=== PATIENT | male | born 1950 | race Caucasian/White ===

== ENCOUNTER 2020-09-03 09:17 | Emergency (ER) | payer MEDICARE, SELFPAY ==
--- NOTE | 2020-09-03 09:29 | ECG_ITS ---
[facility] Test Date: 2020-09-03 Pat Name: Mallorie Guo Department: Room: Gender: Male Pilot Instructor: : 1950 Requested By: Lorri Junior Order Number: [id number] Belinda MD: Beena Wagoner M.D. Measurements Intervals [place] Rate: 74 P: 62 WV: 141 QRS: 103 QRSD: 142 T: 5 QT: 432 QTc: 481 Interpretive Statements SINUS RHYTHM RIGHT AXIS DEVIATION [QRS AXIS > 100] INTRAVENTRICULAR CONDUCTION DELAY [130+ ms QRS DURATION] No previous ECG available for comparison Electronically Signed On 09-03-2020 21:31:10 TOWER SWITCH OPERATOR by Beena Wagoner M.D. [id number]
--- NOTE | 2020-09-03 09:29 | XR_ITS ---
WS: [id number] PORTABLE CHEST HISTORY: fatigue, not feeling well COMPARISON: None available. Mild pulmonary hyperinflation from emphysema. Slight elevation RIGHT hemidiaphragm. Subsegmental area of atelectasis at the LEFT lung base. No pleural effusion or pneumothorax. Cardiac size: Normal. Mediastinum/Aorta: Mild atherosclerosis aorta. No osseous abnormality seen. XR/XR chest 1V portable [id number] IMPRESSION: 1. Chronic emphysema with no pneumonia. 2. Subsegmental atelectasis LEFT lung base.
[2020-09-03 09:41] VITALS: BP 152/95; PULSE 80; RESP 18; TEMP 36.9; O2SAT 95; BMI 23.7
--- NOTE | 2020-09-03 10:25 | ED_ITS ---
HPI - General Adult General: Chief complaint: General Medical Stated complaint: FEELING BAD FOR 6 DAYS, UNSURE WHATS WRONG Time Seen by Provider: 09/03/20 09:53 Source: patient and family (spouse) Mode of arrival: ambulatory Limitations: no limitations History of Present Illness: HPI narrative: 70-year-old male patient presents to the emergency department with 6-day history of not feeling well. Symptoms started 08/29/2020. He reports he developed 100.0 temperature on Monday, 4-5 days ago, reports decreased appetite, taking Tylenol several times daily, taking baby aspirin daily as well as naproxen. He denies fever chills or night sweats. Denies nausea vomiting diarrhea. He does state left-sided chest pain that started last night, reports shortness of breath with exertion which is new. States has not seen a doctor in several years, denies medical problems, denies weight loss, he does not smoke nor drink alcohol. His spouse is present. Onset (ago): day(s) (7) Location: chest (left lower chest - with cough - none today) Severity: mild Severity scale (1-10): 4 Quality: sharp Pain Consistency: intermittent Associated symptoms: Reports chest pain, cough, decreased appetite, malaise, short of breath and weakness; Deny dyspnea, headache(s), nausea, rash, palpitations, syncope or vomiting Treatments prior to arrival: NSAID, aspirin and other (Tylenol) Review of Systems General: Reports: 10 or more systems reviewed and unremarkable except in HPI and below Const: Reports: malaise Eyes: Denies: blurry vision or eye redness ENMT: Reports: nasal congestion and post nasal drip; Denies: throat pain, hoarseness, dental pain, disequilibrium, nasal discharge or nasal obstruction Card: Reports: chest pain and dyspnea on exertion; Denies: palpitations, edema, lightheadedness, syncope or orthopnea Resp: Reports: productive cough (clear sputum) and chest congestion; Denies: dyspnea, non-productive cough, wheezing or hemoptysis GI: Denies: abdominal pain, nausea, vomiting, dysphagia, heartburn, diarrhea, constipation, GI cramping or pain on defecation : Denies: difficulty urinating, dysuria or difficulty starting urination Musc: Reports: muscle weakness; Denies: neck pain, back pain, joint pain, joint swelling, limited range of motion or muscle cramps Skin/Breast: Denies: rash or pruritus Neuro: Denies: headache(s), weakness in extremities or behavioral changes Psych: Denies: anxiety or depression Aime/Lymph: Denies: easy bruising PFSH ED PFSH: Social History (Updated 09/03/20 @ 10:29 by LACY Morse) Alcohol intake: never Caregiver/support person: Yes Lives independently: Yes Household members: spouse Physical Exam Const: COMMON NORMALS: no acute distress, average body habitus, patient oriented x3, healthy appearing and alert EXAM LIMITATIONS: altered mental status GENERAL APPEARANCE: cooperative, comfortable and well hydrated NUTRITIONAL APPEARANCE: thin ORIENTATION/CONSCIOUSNESS: Yes awake, Yes oriented to person, Yes oriented to place and Yes oriented to time HENMT: COMMON NORMALS: normocephalic, atraumatic, EAC's normal, Normal external nose present and moist oral mucous membranes HEAD & SCALP: normocephalic and atraumatic FACE & SINUS: normal facial exam, sinuses nontender and face symmetric NOSE: Normal external nose present EXTERNAL AUDITORY CANAL: EAC's normal THROAT: posterior oropharynx normal Eye: COMMON NORMALS: Equal, round and reactive pupils present, EOMs intact bilaterally and conjunctivae normal GENERAL EYE: appearance normal, both eyes and all related structures EYELID: eyelids normal CONJUNCTIVA: Yes conjunctivae normal SCLERA: sclerae normal PUPIL: Yes Equal, round and reactive pupils present Neck/C-Spine: COMMON NORMALS: full ROM, no lymphadenopathy and supple GENERAL: Yes normal visual inspection and Yes trachea midline CERVICAL SPINE: Yes cervical ROM normal, No pain with cervical ROM, No Cervical spine tenderness and No Paracervical muscle tenderness Lymph: LYMPHATIC: no lymphadenopathy noted Chest: COMMONS NORMALS: normal inspection of the chest and normal palpation of entire chest wall Resp: COMMON NORMALS: normal respiratory effort, No retractions, No use of accessory muscles and clear to auscultation bilaterally EFFORT & INSPECTION: Yes able to speak in complete sentences, Yes symmetric chest movement, No pursed lip breathing and No retractions AUSCULTATION: clear to auscultation bilaterally, crackles Laterality: left and anterior and wheezes left lower Cardio: COMMON NORMALS: regular rhythm, S1 normal heart sound present and S2 normal heart sound present RHYTHM: regular rhythm HEART SOUNDS: S1 normal heart sound present and S2 normal heart sound present GI: COMMON NORMALS: Soft to palpation and non-tender INSPECTION: Yes normal to inspection PALPATION: Yes Soft to palpation : COMMON NORMALS: Yes no CVA tenderness BLADDER/KIDNEY EXAM: Yes no CVA tenderness Back/Pelvis: COMMON NORMALS: no CVA tenderness, thoracic and lumbar spine normal to inspection and no thoracic nor lumbar tenderness Extremity: COMMON NORMALS: normal to inspection and capillary refill normal Neuro: COMMON NORMALS: patient oriented x3 and no focal motor deficits SENSORIUM/ORIENTATION: Yes alert, Yes oriented to person, Yes oriented to place and Yes oriented to time GAIT: Yes Normal gait present Psych: COMMON NORMALS: mental status grossly normal, Normal thought process present and cooperative APPEARANCE: Yes grossly normal ACTIVITY/MOTOR BEHAVIOR: Yes appropriate eye contact THOUGHT PROCESS: Normal thought process present INSIGHT: Good insight present (Psych) JUDGEMENT: Good judgement present (Psych) Skin: COMMON NORMALS: no rashes or lesions noted, no wounds, turgor normal, no jaundice and no petechiae GENERAL SKIN EXAM: no rashes or lesions noted, elasticity normal and turgor normal Course Vital Signs: Vital signs: Vital Signs Temperature 98.5 F 09/03/20 09:41 Pulse Rate 87 09/03/20 13:50 Respiratory Rate 20 H 09/03/20 13:50 Blood Pressure 150/81 09/03/20 13:50 Pulse Oximetry 96 09/03/20 13:50 MDM - General Adult MDM Narrative: Medical decision making narrative: 70-year-old male patient presents to the emergency department with 6-day history of not feeling well. Chest x-ray revealed chronic emphysema with subsegmental atelectasis left lung base; tested positive for COVID-19 here in the ED; he was not in distress, appears healthy, oxygen saturation maintained between 96 to 100% on room air. Able to tolerate p.o. fluids without nausea; decreased appetite reported which is expected. Lactate normal, lipase normal, troponin 15, EKG sinus rhythm with right axis deviation; he reports has home oxygen monitoring device; Covid results discussed with the patient, I spent lengthy conversation discussing Covid and symptoms that can occur. I also discussed at length monoclonal antibody infusion; I discussed infusion side effects, risks and studies that have concluded patients who receive antibody infusion are less likely to experience severe Covid side effects. Also discussed results with his via phone and monoclonal antibody infusion candidacy. He agrees to proceed; social welfare clerk will assist with appointment needed for infusion. Patient advised to return to the emergency department if he developed pain with inspiration, difficulty breathing, inability to catch his breath or worsening chest pain. Lab Data: Labs: Lab Results 09/03/20 09/03/20 09/03/20 Range/Units 10:15 10:15 10:15 WBC 9.5 (4.0-10.0) 10^3/ uL RBC 4.91 (4.1-5.3) 10^6/u L Hgb 15.3 (11.7-16.6) g/dL Hct 45.3 (42.0-52.0) % MCV 92.3 (80-94) fL MCH 31.2 (28.0-34.0) pg MCHC 33.8 (30.0-36.0) g/dL RDW 12.1 (12.1-15.1) % Plt Count 191 (130-400) 10^3/c mm MPV 9.9 (7.4-10.4) fL Neut % (Auto) 80.7 % Lymph % (Auto) 10.7 % Wright % (Auto) 8.2 % Eos % (Auto) 0.0 % Baso % (Auto) 0.1 % Neut # (Auto) 7.68 (1.8-7.7) 10^3/u L Lymph # (Auto) 1.0 (0.8-4.8) 10^3/u L Wright # (Auto) 0.8 (0.2-0.9) 10^3/u L Eos # (Auto) 0.0 (0.0-0.8) 10^3/u L Baso # (Auto) 0.0 (0.0-0.1) 10^3/u L Nucleated RBC % (a uto) 0 % Nucleated RBCs # 0.0 /100WBC Sodium 136 (136-145) mmol/L Potassium 3.9 (3.5-5.1) mmol/L Chloride 100 (98-107) mmol/L Carbon Dioxide 23 (22-29) mmol/L Anion Gap 16.9 (5-19) BUN 21 (8-23) mg/dL Creatinine 0.9 (0.7-1.2) mg/dL GFR Calculation 83.4 L (90-130) mL/min Glucose 112 (65-115) mg/dL Calculated Osmolal ity 286 (285-295) mOsm/k g Lactate 1.1 (0.5-2.2) mmol/L Calcium 8.4 L (8.5-10.5) mg/dL Total Bilirubin 0.6 (0.15-1.2) mg/dL AST 39 (0-40) U/L ALT 36 (0-41) U/L Alkaline Phosphata se 148 H (40-130) IU/L Troponin T Baselin e (0-15) ng/L Total Protein 7.1 (6.6-8.7) g/dL Albumin 4.1 (3.5-5.2) g/dL Globulin 3.0 (1.3-4.6) g/dL Lipase 24 (13-60) U/L Influenza Type A A g (Negative) Influenza Type B A g (Negative) SARS-CoV-2 Ag (Rap id) (Negative) 09/03/20 09/03/20 09/03/20 Range/Units 10:15 10:30 10:30 WBC (4.0-10.0) 10^3/ uL RBC (4.1-5.3) 10^6/u L Hgb (11.7-16.6) g/dL Hct (42.0-52.0) % MCV (80-94) fL MCH (28.0-34.0) pg MCHC (30.0-36.0) g/dL RDW (12.1-15.1) % Plt Count (130-400) 10^3/c mm MPV (7.4-10.4) fL Neut % (Auto) % Lymph % (Auto) % Wright % (Auto) % Eos % (Auto) % Baso % (Auto) % Neut # (Auto) (1.8-7.7) 10^3/u L Lymph # (Auto) (0.8-4.8) 10^3/u L Wright # (Auto) (0.2-0.9) 10^3/u L Eos # (Auto) (0.0-0.8) 10^3/u L Baso # (Auto) (0.0-0.1) 10^3/u L Nucleated RBC % (a uto) % Nucleated RBCs # /100WBC Sodium (136-145) mmol/L Potassium (3.5-5.1) mmol/L Chloride (98-107) mmol/L Carbon Dioxide (22-29) mmol/L Anion Gap (5-19) BUN (8-23) mg/dL Creatinine (0.7-1.2) mg/dL GFR Calculation (90-130) mL/min Glucose (65-115) mg/dL Calculated Osmolal ity (285-295) mOsm/k g Lactate (0.5-2.2) mmol/L Calcium (8.5-10.5) mg/dL Total Bilirubin (0.15-1.2) mg/dL AST (0-40) U/L ALT (0-41) U/L Alkaline Phosphata se (40-130) IU/L Troponin T Baselin e 15 (0-15) ng/L Total Protein (6.6-8.7) g/dL Albumin (3.5-5.2) g/dL Globulin (1.3-4.6) g/dL Lipase (13-60) U/L Influenza Type A A g Negative (Negative) Influenza Type B A g Negative (Negative) SARS-CoV-2 Ag (Rap id) Positive H (Negative) Imaging Data^: CXR: Radiologist's impression: [address] [address] XRay Report Signed Patient: Record,CoceanUnit #: [id number] : 1950Acct#:[id number] Age/Sex: 70 / MADM Date: 09/03/20 Loc: [facility]/Bed: Attending Dr: Ordering Provider/Ordering MD: Lorri Matos Date of Service: 09/03/20 Procedure(s): XR chest 1V portable [id number] Accession Number(s): [id number] Report Number: [id number] WS: [id number] PORTABLE CHEST HISTORY: fatigue, not feeling well COMPARISON: None available. Mild pulmonary hyperinflation from emphysema. Slight elevation RIGHT hemidiaphragm. Subsegmental area of atelectasis at the LEFT lung base. No pleural effusion or pneumothorax. Cardiac size: Normal. Mediastinum/Aorta: Mild atherosclerosis aorta. No osseous abnormality seen. XR/XR chest 1V portable [id number] IMPRESSION: 1. Chronic emphysema with no pneumonia. 2. Subsegmental atelectasis LEFT lung base. Dictated By:Berta Espino DO Signed By:Berta Espino DOSigned Date/Time:09/03/20 1006 DD/ 1005 EKG Data^: EKG 1: EKG interpretation date: 09/03/20 EKG interpretation time: 10:10 Computer generated interpretation: Chest X-Ray 09/03/20 09:29 IMPRESSION: 1. Chronic emphysema with no pneumonia. 2. Subsegmental atelectasis LEFT lung base. Other EKG comments: Sinus rhythm, right axis deviation, ventricular rate 74 Discharge Plan Discharge Patient Disposition: Home Clinical Impression: COVID-19, Bronchitis due to COVID-19 virus Condition: Stable Prescriptions: New azithromycin 250 mg tablet See Rx Instructions .ROUTE .COMPLEX Qty: 6 RF: 0 dexamethasone 6 mg tablet 6 mg PO Q24H Qty: 10 RF: 0 Zofran 4 mg tablet 4 mg PO Q4H 5 Days Qty: 14 RF: 0 Discharge Orders: Discharge ED (Routine); Ordered 09/03/20 Ordered By: Lorri Matos Discharge Diet: Advance as tolerated and Clear Liquid Discharge Activity: Limit activity as instructed Patient Instructions: Acute Bronchitis (ED), Viral Syndrome (ED) Activity Restrictions/Additional Instructions: push fluids to avoid dehydration May continue Tylenol and Naproxen as needed for pain return to the ED for chest pain, low oxygen level, less than 90%, inability to catch her breath, shortness of breath or other concerning symptoms Continue to monitor your oxygen saturation with monitoring device you have at home, normal levels are greater than 90% if your level drops below 90%, you will need to return to the emergency department You are eligible for Bamlanivimab infusion, that is the antibody for COVID-19. office services coordinator will be contacting you with an appointment for infusion. Please review the fax sheet for patient's parents and caregivers that was provided. Prescription of Zofran has been provided, take medication as needed for nausea, you will need lots and lots of rest. Remain in quarantine; [place] [facility] will be contacting you with further instructions. Coding Level of Care Code ED Educational Psychology Teacher for Chg Fwd Exam Comprehensive
[2020-09-03 10:29] LABS: Basophils % 0.1 %; Hematocrit 45.3 % (42.0-52.0); Hemoglobin 15.3 g/dL (11.7-16.6); Lymphocytes % 10.7 %; Mean Corpuscular HGB Conc 33.8 g/dL (30.0-36.0); Mean Corpuscular Hemoglobin 31.2 pg (28.0-34.0); Mean Corpuscular Volume 92.3 fL (80-94); Mean Platelet Volume 9.9 fL (7.4-10.4); Monocytes # 0.8 10^3/uL (0.2-0.9); Monocytes % 8.2 %; Neutrophils # 7.68 10^3/uL (1.8-7.7); Neutrophils % 80.7 %; Nucleated Red Blood Cells % 0 %; Platelet Count 191 10^3/cmm (130-400); Red Blood Count 4.91 10^6/uL (4.1-5.3); Red Cell Distribution Width 12.1 % (12.1-15.1); White Blood Count 9.5 10^3/uL (4.0-10.0)
[2020-09-03 10:49] LABS: Alanine Aminotransferase 36 U/L (0-41); Albumin Level 4.1 g/dL (3.5-5.2); Alkaline Phosphatase 148 IU/L (40-130); Anion Gap 16.9 (5-19); Aspartate Amino Transferase 39 U/L (0-40); Blood Urea Nitrogen 21 mg/dL (8-23); Calcium 8.4 mg/dL (8.5-10.5); Carbon Dioxide 23 mmol/L (22-29); Chloride 100 mmol/L (98-107); Glomerular Filtration Rate 83.4 mL/min (90-130); Glucose 112 mg/dL (65-115); Lactate (Lactic Acid level) 1.1 mmol/L (0.5-2.2); Lipase 24 U/L (13-60); Osmolality Calculated 286 mOsm/kg (285-295); Potassium 3.9 mmol/L (3.5-5.1); Sodium 136 mmol/L (136-145); Total Bilirubin 0.6 mg/dL (0.15-1.2); Total Protein 7.1 g/dL (6.6-8.7)
[2020-09-03 12:18] LABS: Troponin(5th) Baseline 15 ng/L (0-15)
[2020-09-03 12:18] LABS: Influenza A by IFA Negative (Negative); Influenza B by IFA Negative (Negative); SARS Covid-2 Antigen Positive (Negative)
[2020-09-03] MEDS: dexamethasone 4 mg Tablet 10 MG PO (13:35)
[2020-09-03 13:50] VITALS: BP 150/81; PULSE 87; RESP 20; O2SAT 96
--- NOTE | 2020-09-03 16:36 | DCPLANNER ---
integration project manager was asked to fax a BAM infusion order for patient to centralized scheduling. integration project manager called centralized scheduling, spoke with Zeina, told her that an order for BAM was being faxed to her.
== END 2020-09-03 13:51 | disposition home or self-care (01) ==
PROVIDERS: Emergency Provider Nurse Practitioner Family
DX: U07.1 COVID-19 (principal); J40 Bronchitis, not specified as acute or chronic
CPT/HCPCS: 12345; 71045; 80053; 83605; 83690; 84484; 85025; 87426; 87804; 93005; 99282; 99283; J8540

== ENCOUNTER 2020-09-04 15:13 | Outpatient (CLI) | payer MEDICARE, SELFPAY ==
[2020-09-04 15:29] VITALS: BP 160/93; PULSE 80; RESP 18; TEMP 36.9; O2SAT 94; BMI 23.2
[2020-09-04 16:08] VITALS: BP 154/95; PULSE 75; RESP 18; TEMP 36.9; O2SAT 93
[2020-09-04 16:23] VITALS: BP 154/85; PULSE 71; RESP 18; TEMP 37.1; O2SAT 94
[2020-09-04 17:10] VITALS: BP 147/90; PULSE 74; RESP 18; TEMP 36.6; O2SAT 96
[2020-09-04 18:12] VITALS: BP 142/86; PULSE 72; RESP 18; TEMP 36.6
--- NOTE | 2020-09-10 13:14 | DCPLANNER ---
Addendum entered by Nicole Welch 09/16/20 11:05: technical project manager called to check on patient after receiving the BAM infusion. Patient stated that he is doing a lot better, not back to 100%, he stated that he is still weak, his breathing is better. Patient stated that he has not been admitted to hospital anywhere. Original Note: technical project manager had message that patient received the BAM infusion. technical project manager called patient to check on him after receiving the BAM infusion. Patient stated that he is feeling a lot better than he was. Before the infusion, he felt really bad, no fever, no cough, no body aches, did not lose is sence of taste or smell. Patient stated that he just felt awful. Patient stated that now he was feeling better, was sleeping better, he still does not have a cough.
== END 2020-09-04 18:14 | disposition home or self-care (01) ==
LOC: OPS 15:14
PROVIDERS: Referring Provider Nurse Practitioner Family; Visit Provider Nurse Practitioner Family
DX: U07.1 COVID-19 (principal)
CPT/HCPCS: 96365; J7050